=== PATIENT | male | born 1980 | race Caucasian/White ===

== ENCOUNTER → 2020-05-10 | Outpatient (REF) | payer OTHER ==
[2020-05-10 15:02] LABS: C REACTIVE PROTEIN QUANTITATIV 1.48 MG/DL (0.00-0.30); CPK CREATINE PHOSPHOKINASE 171 U/L (39-308); RHEUMATOID FACTOR QUANT < 10.0 IU/ML (<15.0)
[2020-05-10 15:20] LABS: HEPATITIS B SURFACE ANTIGEN NEGATIVE (NEGATIVE)
[2020-05-10 15:49] LABS: HEPATITIS C VIRUS ABY INDEX 0.1 INDEX (<0.8)
== END ==
LOC: M SFHCRHEU 10:04
PROVIDERS: ATTEND Internal Medicine
DX: M53.3 Sacrococcygeal disorders, not elsewhere classified (principal); M54.12 Radiculopathy, cervical region; G62.9 Polyneuropathy, unspecified